=== PATIENT | male | born 1980 | race American Indian/Alaskan Native ===

== ENCOUNTER 2017-04-09 01:07 | Emergency (ER) | payer MEDICAID ==
[2017-04-09] MEDS ORDERED: Ketorolac 30 MG/ML SDV IM ONE (01:22)
[2017-04-09] MEDS ORDERED: Alum Hydroxide/Mag Hydroxide 15 ML, Lidocaine 2% 15 ML PO ONE ×2 (01:23)
[2017-04-09] MEDS ORDERED: HYDROmorphone 2 MG/ML SDV IM ONE (02:03)
--- NOTE | 2017-04-09 02:15 | EDM.PDOC ---
ED HPI GENERAL MEDICAL PROBLEM - General Chief Complaint: Abdominal Pain Stated Complaint: STOMACH PAIN Time Seen by Provider: 04/09/17 02:09 Source of Information: Reports: Patient History Limitations: Reports: No Limitations - History of Present Illness INITIAL COMMENTS - FREE TEXT/NARRATIVE: 37yo obese male to ED with gradual onset of generalized abdominal pain. No fever, chills, myalgias, nausea, vomiting, diarrhea. Rates pain 10/10 intensity. Refuses to speak much. Accompanied by significant other. Denies trauma. Onset: Today, Gradual Onset Date: 04/09/17 Onset Time: 02:12 Duration: Hour(s): Location: Reports: Abdomen Quality: Reports: Sharp Severity: Severe Improves with: Reports: None Worsens with: Reports: None Abdominal Pain Score (Numeric/FACES): 10 - Related Data Allergies Allergy/AdvReac Type Severity Reaction Status Date / Time No Known Allergies Allergy Verified 04/09/17 01:15 Home Meds: Home Meds Gabapentin [Neurontin] 300 mg PO BID 04/09/17 [History] Past Medical History Musculoskeletal History: Reports: Back Pain, Chronic Social & Family History - Tobacco Use Smoking Status *Q: Current Every Day Smoker Years of Tobacco use: 4 Packs/Tins Daily: 0.5 - Caffeine Use Caffeine Use: Reports: Coffee, Soda - Recreational Drug Use Recreational Drug Use: No ED ROS GENERAL - Review of Systems Review Of Systems: ROS reveals no pertinent complaints other than HPI. ED EXAM, GI/ABD - Physical Exam Exam: See Below Exam Limited By: Physical Impairment General Appearance: Alert, WD/WN Eyes: Left: Normal Appearance Respiratory/Chest: No Respiratory Distress, Lungs Clear Cardiovascular: Regular Rate, Rhythm GI/Abdominal Exam: Normal Bowel Sounds, Soft, No Organomegaly, No Distention Back Exam: Normal Inspection Extremities: Normal Inspection Neurological: Alert, Oriented Skin Exam: Warm, Dry Course - Vital Signs Last Recorded V/S: Last Vital Signs Temp 36.7 C 04/09/17 01:18 Pulse 80 04/09/17 01:18 Resp 24 H 04/09/17 01:18 BP 153/87 H 04/09/17 01:18 Pulse Ox 98 04/09/17 01:18 - Orders/Labs/Meds Orders: Active Orders 24 hr Category Date Time Status Abdomen 2V AP Flat Upright [CR] Stat Exams 04/09/17 02:08 Ordered HYDROmorphone [Dilaudid] Med 04/09/17 02:03 Once 2 mg IM ONETIME ONE Medication Orders Hydromorphone HCl (Dilaudid) 2 mg IM ONETIME ONE Stop: 04/09/17 02:04 Meds: Medications Generic Name Dose Route Start Last Admin Trade Name Syd PRN Reason Stop Dose Admin Hydromorphone HCl 2 mg 04/09/17 02:03 Dilaudid IM 04/09/17 02:04 ONETIME ONE Discontinued Medications Generic Name Dose Route Start Last Admin Trade Name Freq PRN Reason Stop Dose Admin Al Hydroxide/Mg Hydroxide 15 0 ml 04/09/17 01:23 04/09/17 01:30 ml/ Lidocaine HCl 15 ml PO 04/09/17 01:24 15 ml ONETIME ONE Administration Ketorolac Tromethamine 30 mg 04/09/17 01:22 04/09/17 01:30 Toradol IM 04/09/17 01:23 30 mg ONETIME ONE Administration Departure - Departure Time of Disposition: 02:52 Disposition: Home, Self-Care 01 Condition: Good Clinical Impression: Constipation Qualifiers: Constipation type: unspecified constipation type Qualified Code(s): K59.00 - Constipation, unspecified - Discharge Information Referrals: PCP,None [Primary Care Provider] - Care Plan Goals: Miralax 17g daily for 2 days. Magnesium citrate one bottle daily for 2 days. Milk of Magnesia 60ml daily for 2 days. - My Orders Last 24 Hours: My Active Orders 04/09/17 02:03 HYDROmorphone [Dilaudid] 2 mg IM ONETIME ONE 04/09/17 02:08 Abdomen 2V AP Flat Upright [CR] Stat - Assessment/Plan Last 24 Hours: My Active Orders 04/09/17 02:03 HYDROmorphone [Dilaudid] 2 mg IM ONETIME ONE 04/09/17 02:08 Abdomen 2V AP Flat Upright [CR] Stat
--- NOTE | 2017-04-11 11:30 | CR ---
INDICATION: Upper abdomen pain. ABDOMEN: Seven images of the abdomen were obtained 04/09/2017 and revealed a fairly nonspecific pattern of gas and feces. There is suggestion of a mass in the left upper quadrant. This could represent an enlarged left lobe of the liver or perhaps gastric distention less likely. Depending upon clinical correlation, examination by CT may be helpful. Otherwise, no organomegaly or mass lesions were identified. No free air or obstruction was seen with fairly nonspecific pattern of gas and feces. Supine and decubitus images were obtained. IMPRESSION: Cannot exclude a mass in the left upper quadrant. Depending upon clinical correlation, CT examination may be helpful for further evaluation. MTDD
== END 2017-04-09 02:58 | disposition home or self-care (01) ==
LOC: FB.ED 01:07
DX: K59.00 Constipation, unspecified (principal); F17.210 Nicotine dependence, cigarettes, uncomplicated
CPT/HCPCS: 74019; 96372; 99283; A9270; J1170; J1885

== ENCOUNTER 2017-04-15 17:30 | Emergency (ER) | payer MEDICAID ==
[2017-04-15] MEDS ORDERED: Acetaminophen 325 MG Tab ONE (18:48)
[2017-04-15] MEDS ORDERED: Acetaminophen 325 MG Tab PO ONE (18:48)
[2017-04-15] MEDS ORDERED: Acetaminophen 325 MG Tab PO STA (19:08)
[2017-04-15] MEDS ORDERED: Ibuprofen 200 MG Tab PO ONE (19:09)
[2017-04-15] MEDS ORDERED: Ibuprofen 800 MG Tab PO ONE (19:21)
--- NOTE | 2017-04-16 12:29 | ER ---
DATE SEEN: 04/15/2017 TIME SEEN: The patient was seen at 1735 hours. HISTORY OF PRESENT ILLNESS: This 37-year-old [place] gentleman comes in with history of onset on 04/13 of the abscess right and left lower quadrant, skin subcutaneous fat area. He is 276 pounds. Currently, he is placed on clindamycin 300 mg b.i.d., alprazolam 1 mg t.i.d., ibuprofen 200 mg q.6 hours, gabapentin 300 mg b.i.d., and Flexeril 1 tablet b.i.d. p.r.n. His medicines were started per clinic visit on 04/13/2017. Presently, he has pain 7/10 in intensity and at its worst goes to 10/10. The patient denies fever, denies nausea or vomiting, or lightheadedness. PAST MEDICAL HISTORY: Angioedema with Tylenol with Codeine (he thinks he is allergic to Tylenol, perhaps most likely the codeine is the culprit). Has no diabetes. He is 5 feet 11 inches and 276 pounds with a BMI of 38.5 kg/m2. REVIEW OF SYSTEMS: Otherwise negative except for the fact he has a marked photosensitivity to his eyes, and even in the daytime when he is inside or outside, he wears sunglasses. The patient denies being part of the drug culture or drug abuse. PHYSICAL EXAMINATION: GENERAL: An obese man, in moderate distress. He has a marked increased panniculus of his abdomen. He is sitting back because of abdominal discomfort. HEENT: Pharynx without abnormality. Moderate glossomegaly. NECK: Without bruits or cervical adenopathy. Neck is supple. LUNGS: Clear without rales or rhonchi. HEART: S1, S2. No murmur. No irregular rate and rhythm. ABDOMEN: Soft. Left lower quadrant, a mass. The area is 15 cm x 13 cm and at 6 to 7 cm has a central indurated slightly raised purplish erythematous lesion at the peripheral centrifugal part of this erythema. This is very painful to touch. No mass in the abdomen. The patient states he was just in the clinic and had a CAT scan recently and he said his liver was enlarged, but there is a mass in his left lobe and consequently he is going to go back to clinic having "another CAT scan this next weekend" (perhaps this means he is going to have a biopsy). IMAGING DATA: Quick-look ultrasound did not reveal a discrete liquid-filled mass in the anterior subcutaneous tissue, but there are diffuse sort of non liquids changed in the character of the ultrasound. He has minimal inguinal adenopathy. Bowel sounds are normal. I do not feel hepatosplenomegaly. ASSESSMENT: 1. Abscess, left anterior abdomen, he is not mature enough to proceed with incision and drainage. The patient may be undertreated with clindamycin only 300 mg b.i.d., plan to increase the dose to 300 mg t.i.d. Follow up with a surgeon in the next 3-5 days and use every 20-30 minutes warm moist packs to accelerate the resolution of the abscess into a more liquid-filled mass, so it can be incised and drained. 2. Will diminish some of the pain. 3. Also take his mind off his abscess. The patient asked for pain medicine. Because he had what sounds like angioedema, he was hospitalized and would like to observe for several hours after he took Tylenol with Codeine. He had a rash followed by edema in his lips, his face. Consequently, the patient just received Tylenol 1000 mg, ibuprofen 600 mg together every 6 hours for pain relief. He received a dose of 325 mg Tylenol in the ER. He was without any allergic reaction in the ER. So, it is unlikely that Tylenol is the culprit. DIAGNOSES: 1. Cellulitis left anterior abdomen without abscess formation, left. 2. Morbid obesity. 3. Perhaps undertreated with clindamycin, plan to increase dose to t.i.d. clindamycin. 4. History of what sounds like angioedema from codeine. 5. Normotensive, no evidence for sepsis. /[id number] SAMANTHA/MODL
== END 2017-04-15 19:24 | disposition home or self-care (01) ==
LOC: FB.ED 17:30
DX: L03.311 Cellulitis of abdominal wall (principal); E66.01 Morbid (severe) obesity due to excess calories
CPT/HCPCS: 99282; A9270

== ENCOUNTER 2017-05-10 07:59 | Day surgery (SDC) | payer MEDICAID ==
[~2017-05-10 07:59] MED LIST: Lactated Ringers 1,000 ML IV SCH; Sodium Chloride 0.9% 10 ML Syringe FLUSH PRN
[2017-05-10] MEDS ORDERED: cefOXitin 2 GM Vial IV ONE (09:15)
[2017-05-10] MEDS ORDERED: cefOXitin 2 GM in Sodium Chloride 0.9% 100 ML IV ONE (09:15)
--- NOTE | 2017-05-10 10:08 | PCM.SN ---
- Free Text/Narrative Note: 05/10/2017 To Whom It May Concern: Mr Avelino Gant has symptomatic gallstones and is to have his gallbladder removed. Part of the procedure involves the use of an electrocautery device, which could result in newman where his ankle bracelet is located. He will need this to be removed in order for us to proceed with the surgery. If you have any questions you can contact my office at [phone]. Hank Winters MD, [address] [place] [address]
== END 2017-05-10 10:00 | disposition home or self-care (01) ==
LOC: FB.SDS 07:59
PROVIDERS: ATTEND Surgery
DX: K80.80 Other cholelithiasis without obstruction (principal); Z53.8 Procedure and treatment not carried out for other reasons; Z88.8 Allergy status to other drugs, medicaments and biological substances
CPT/HCPCS: J0694; J7120

== ENCOUNTER 2017-05-25 08:44 | Day surgery (SDC) | payer MEDICAID ==
[2017-05-25] MEDS ORDERED: Lactated Ringers 1,000 ML IV SCH ×2 (08:45→10:00)
[2017-05-25] MEDS ORDERED: Morphine 10 MG/ML Syringe IVPUSH PRN (09:53)
[2017-05-25] MEDS ORDERED: Albuterol 0.083% 2.5 MG/3 ML Neb Soln NEB PRN (09:53)
[2017-05-25] MEDS ORDERED: diphenhydrAMINE 50 MG/ML SDV IVPUSH PRN (09:53)
[2017-05-25] MEDS ORDERED: Naloxone 0.4 MG/ML SDV IVPUSH PRN (09:53)
[2017-05-25] MEDS ORDERED: Meperidine PF 75 MG/ML Syringe IV PRN (09:53)
[2017-05-25] MEDS ORDERED: fentaNYL 100 MCG/2 ML SDV IVPUSH PRN (09:53)
[2017-05-25] MEDS ORDERED: Ondansetron 4 MG/2 ML SDV IVPUSH PRN (09:53)
[2017-05-25] MEDS ORDERED: fentaNYL 100 MCG/2 ML SDV IV ONE (10:30)
[2017-05-25] MEDS ORDERED: Lactated Ringers 1,000 ML IV ONE (10:30)
[2017-05-25] MEDS ORDERED: Propofol 200 MG/20 ML SDV IV ONE (10:30)
[2017-05-25] MEDS ORDERED: Rocuronium 100 MG/10 ML MDV IV ONE (10:30)
[2017-05-25] MEDS ORDERED: Lidocaine 2% 100 MG/5 ML Syringe IVPUSH ONE (10:30)
[2017-05-25] MEDS ORDERED: ePHEDrine 50 MG/ML SDV IV ONE (10:30)
[2017-05-25] MEDS ORDERED: Ondansetron 4 MG/2 ML SDV IVPUSH ONE (10:30)
[2017-05-25] MEDS ORDERED: Ketorolac 30 MG/ML SDV IVPUSH ONE (10:30)
[2017-05-25] MEDS ORDERED: Succinylcholine 200 MG/10 ML MDV IV ONE (10:30)
[2017-05-25] MEDS ORDERED: Midazolam 1 MG/ML 2 ML SDV IV ONE (10:30)
[2017-05-25] MEDS ORDERED: Neostigmine Methylsulfate 1 MG/ML 5 ML Syringe IV ONE (10:30)
[2017-05-25] MEDS ORDERED: Bupivacaine 0.5% 30 ML SDV INJECT ONE (10:38)
[2017-05-25] MEDS ORDERED: Lidocaine 1% with EPINEPHrine 1:100,000 20 ML MDV INJECT ONE (10:38)
--- NOTE | 2017-05-25 11:38 | PCM.OPNOTE ---
- General Post-Op/Procedure Note Date of Surgery/Procedure: 05/25/17 Operative Procedure(s): lap cholecysectomy Findings: marked adhesions cystic duct and artery identified Pre Op Diagnosis: sx cholelithiasis Post-Op Diagnosis: Same Anesthesia Technique: General ET Tube, Local (15 ml 1 % lido with epi/0.5% buvipicaine) Primary Surgeon: Hank Winters Anesthesia Provider: Jeremy Gary Pathology: gallbladder Complications: None Condition: Good Free Text/Narrative:: see dictation
--- NOTE | 2017-05-25 17:23 | OR ---
DATE OF OPERATION: 05/25/2017 SURGEON: Hank Winters MD PREOPERATIVE DIAGNOSIS: Symptomatic cholelithiasis. POSTOPERATIVE DIAGNOSIS: Symptomatic cholelithiasis. PROCEDURE PERFORMED: Laparoscopic cholecystectomy. INDICATIONS FOR PROCEDURE: This is a 37-year-old male with symptomatic gallstones. He was offered and accepted laparoscopic cholecystectomy. INTRAOPERATIVE FINDINGS: Marked adhesions were noted. 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 Otherwise, the procedure was unremarkable. Total of 15 mL of our local mixture was used. DESCRIPTION OF OPERATION: After an excellent general anesthetic was administered, the patient was prepped and draped in usual sterile manner. A 1:1 mixture of 1% lidocaine with epinephrine and 0.5% bupivacaine was used to infiltrate the area below the level of the umbilicus and blunt dissection was carried out exposing the midline fascia. Two stay sutures were placed on either side of the midline fascia and a 10.5 mm Dav trocar was inserted after making an incision to the fascial defect and inserting a finger. Under direct visualization, three 5 mm ports were placed, one in the midline epigastrium and two below the right costal margin at the approximate level of the midclavicular and anterior axillary line. Due to its obesity, we did place an additional 5-mm port approximately fdc between our epigastric port and our umbilical port. This was a 5-mm port placed by a full-thickness injection, a stab incision and then inserting our port. This allowed us to change the camera views around as needed to obtain an optimal view. The gallbladder tip was grasped. Attempts at blunt dissection to takeoff some adherent peritoneum with blood resulted in a slight rent in the gallbladder. We then switched to the LigaSure to take down these fatty adhesions which was much better. The infundibulum was then easily identified and grasped. We dissected out the 2 cystic structures, one that was anterior to what appeared to be the cystic duct and one up onto the wall of the gallbladder. This was pulsatile in nature, medially posterior to this appeared to be the cystic duct, clearing out the remainder of what would be in the triangle of Calot. There were no further vessels or duct structures noted. Two clips were placed proximally and one distally on both of these structures and these were then transected using a combination of the LigaSure as well as L-hook cautery dissection. The gallbladder was then dissected free and passed into the specimen bag. There was some spillage of bile during this procedure. This was irrigated. The hemostasis was excellent and after irrigating until clear, all the ports removed under direct visualization. The umbilical defect was closed with a [id number] 0 Vicryl. [place] were used to close the skin. The needle, sponge, and instrument counts were reported as correct. The patient was taken to recovery room in good condition. /[id number] /MODL
== END 2017-05-25 13:44 | disposition home or self-care (01) ==
LOC: FB.SDS 08:44
PROVIDERS: ATTEND Surgery
DX: K80.10 Calculus of gallbladder with chronic cholecystitis without obstruction (principal); Z88.8 Allergy status to other drugs, medicaments and biological substances; Z79.899 Other long term (current) drug therapy; F17.210 Nicotine dependence, cigarettes, uncomplicated
CPT/HCPCS: 88304; J0330; J1885; J2250; J2405; J2704; J3010; J7120